=== PATIENT | male | born 1950 | race Asian ===

== ENCOUNTER 2018-06-20 13:49 | Inpatient (IN) | payer OTHER ==
[2018-06-20 14:07] LABS: ADD MAN DIFF? NO
[2018-06-20 14:11] LABS: WHITE BLOOD COUNT 9.9 10^3/ul (4.8-10.8)
[2018-06-20 14:11] LABS: BASOPHIL # 0.1 10^3/ul (0.0-0.1); BASOPHILS % 0.7 % (0.0-2.0); EOSINOPHILS # 1.1 10^3/ul (0.0-0.5); EOSINOPHILS % 11.3 % (0.0-7.0); HEMATOCRIT 54.2 % (42.0-52.0); HEMOGLOBIN 16.5 g/dl (14.0-18.0); LYMPHOCYTES # 2.1 10^3/ul (0.8-2.9); LYMPHOCYTES % 20.9 % (15.0-51.0); MEAN CORPUSCULAR HEMOGLOBIN 29.1 pg (29.0-33.0); MEAN CORPUSCULAR HGB CONC 30.4 g/dl (32.0-37.0); MEAN CORPUSCULAR VOLUME 95.6 fl (82.0-101.0); MEAN PLATELET VOLUME 10.7 fl (7.4-10.4); MONOCYTE # 0.8 10^3/ul (0.3-0.9); MONOCYTES % 8.5 % (0.0-11.0); NEUTROPHIL # 5.8 10^3/ul (1.6-7.5); NEUTROPHILS % 58.3 % (39.0-77.0); PLATELET COUNT 170 10^3/UL (140-415); RED BLOOD COUNT 5.67 10^6/ul (4.70-6.10); RED CELL DISTRIBUTION WIDTH 15.2 % (11.5-14.5)
[2018-06-20 14:32] LABS: ALANINE AMINOTRANSFERASE 39 IU/L (13-69); ALBUMIN/GLOBULIN RATIO 1.17; ALKALINE PHOSPHATASE 67 IU/L (42-121); ANION GAP 9 (8-16); ASPARTATE AMINO TRANSFERASE 37 IU/L (15-46); BILIRUBIN,INDIRECT 0.6 mg/dl (0-1.1); BILIRUBIN,TOTAL 0.6 mg/dl (0.2-1.3); BLOOD UREA NITROGEN 21 mg/dl (7-20); CALCIUM 8.9 mg/dl (8.4-10.2); CARBON DIOXIDE 32 mmol/L (21-31); CHLORIDE 106 mmol/L (97-110); CREATININE 0.94 mg/dl (0.61-1.24); GLUCOSE 111 mg/dl (70-220); POTASSIUM 4.4 mmol/L (3.5-5.1); SODIUM 143 mmol/L (135-144); TOTAL PROTEIN 7.4 g/dl (6.1-8.1)
[2018-06-20] MEDS: ASPIRIN 81 MG TAB PO (14:34)
[2018-06-20 14:41] LABS: B-TYPE NATRIURETIC PEPTIDE 1240 PG/ML (0-125); TROPONIN-I 0.026 ng/ml (0.000-0.120)
[2018-06-20 14:56] LABS: MODE NASAL CANNULA; MetHgb Venous 0.5 %; Sample Type Blood venous; Site VENOUS LINE; Venous COHb 0.7 %; Venous Fraction OxyHgb 28.6 %; Venous Oxygen Sat 28.9 mmHG (55.0-75.0); Venous Total Hemglobin 16.9 g/dl
[2018-06-20] MEDS: LEVOFLOXACIN 750MG/D5W (PMX) 150 ML IVPB (14:57)
[2018-06-20] MEDS: SODIUM CHLORIDE 0.9% 1L BAG IV* (14:57)
[2018-06-20 15:38] LABS: LACTIC ACID 1.2 mmol/L (0.5-2.0)
[2018-06-20] MEDS ORDERED: METOPROLOL 5 MG INJ IV (17:00)
[2018-06-20] MEDS: IOHEXOL 100 ML (17:07)
[2018-06-20] MEDS: SOD CHLORIDE 0.9% 100 ML (17:07)
[2018-06-20] MEDS: DILTIAZEM 25 MG INJ IV (17:11)
[2018-06-20] MEDS ORDERED: ONDANSETRON 4 MG INJ IV ×2 (18:30→19:00)
[2018-06-20] MEDS ORDERED: ACETAMINOPHEN 325 MG TAB PO ×2 (18:30→19:00)
[2018-06-20 18:42] LABS: LACTIC ACID 0.9 mmol/L (0.5-2.0)
[2018-06-20] MEDS ORDERED: morphine 2 MG INJ IV (19:00)
[2018-06-20] MEDS ORDERED: HYDROCODONE/APAP (5/325) TAB PO (19:00)
[2018-06-20] MEDS ORDERED: ALBUTEROL/IPRATROPIUM (NEB) 3 ML AMP HHN (19:00)
[2018-06-20] MEDS ORDERED: DOCUSATE SODIUM 100 MG CAP PO (19:00)
[2018-06-20] MEDS ORDERED: NACL 0.9% 3 ML SYG IV (19:00)
[2018-06-20] MEDS ORDERED: ZOLPIDEM 5 MG TAB PO (19:00)
[2018-06-20] MEDS: METHYLPREDNISOLONE 125 MG INJ IV (19:25)
[2018-06-20] MEDS: SOD CHLORIDE 0.9% 1,000 ML IV (19:25)
[2018-06-20] MEDS ORDERED: GLUCAGON 1 MG INJ IM (19:30)
[2018-06-20] MEDS ORDERED: GLUCOSE GEL 15 GRAM TUBE PO ×2 (19:30)
[2018-06-20] MEDS ORDERED: DEXTROSE 50% 50 ML SYRINGE IV ×2 (19:30)
[2018-06-20] MEDS ORDERED: GLUCOSE GEL 15 GRAM TUBE BUCCAL (19:30)
[2018-06-20] MEDS: AZITHROMYCIN 500MG/NS (PMX) 250 ML IVPB (19:30)
[2018-06-20] MEDS: INSULIN GLARGINE [LANTus] (100 UNITS/ML) SYG SC (20:47)
[2018-06-20] MEDS: INSULIN ASPART [NOVOLOG] 3 ML PEN SC (20:49)
[2018-06-20 21:29] LABS: CREATINE KINASE 227 IU/L (23-200)
[2018-06-20 21:40] LABS: CK INDEX 2.3; CK-MB 5.16 ng/ml (0.0-2.4); TROPONIN-I 0.024 ng/ml (0.000-0.120)
[2018-06-20 21:45] LABS: LACTIC ACID 2.4 mmol/L (0.5-2.0)
[2018-06-20] MEDS: ATORVASTATIN 40 MG TAB PO (22:40)
[2018-06-21] MEDS: METHYLPREDNISOLONE 125 MG INJ IV ×3 (01:00→13:14)
[2018-06-21] MEDS: METOPROLOL 25 MG TAB PO (01:34)
[2018-06-21] MEDS: ACCU-CHEK XX (01:39)
[2018-06-21 03:04] LABS: CREATINE KINASE 309 IU/L (23-200)
[2018-06-21 03:18] LABS: CK INDEX 2.6; CK-MB 8.16 ng/ml (0.0-2.4); TROPONIN-I 0.018 ng/ml (0.000-0.120)
[2018-06-21 06:29] LABS: ADD MAN DIFF? NO
[2018-06-21 06:31] LABS: BASOPHILS % 0.4 % (0.0-2.0); EOSINOPHILS % 0.1 % (0.0-7.0); HEMATOCRIT 54.9 % (42.0-52.0); HEMOGLOBIN 16.1 g/dl (14.0-18.0); LYMPHOCYTES # 0.7 10^3/ul (0.8-2.9); LYMPHOCYTES % 10.4 % (15.0-51.0); MEAN CORPUSCULAR HEMOGLOBIN 28.2 pg (29.0-33.0); MEAN CORPUSCULAR HGB CONC 29.3 g/dl (32.0-37.0); MEAN CORPUSCULAR VOLUME 96.1 fl (82.0-101.0); MEAN PLATELET VOLUME 10.7 fl (7.4-10.4); MONOCYTE # 0.1 10^3/ul (0.3-0.9); MONOCYTES % 0.9 % (0.0-11.0); NEUTROPHILS % 87.8 % (39.0-77.0); PLATELET COUNT 162 10^3/UL (140-415); RED BLOOD COUNT 5.71 10^6/ul (4.70-6.10); RED CELL DISTRIBUTION WIDTH 15.3 % (11.5-14.5)
[2018-06-21 06:31] LABS: WHITE BLOOD COUNT 6.9 10^3/ul (4.8-10.8)
[2018-06-21 06:53] LABS: ANION GAP 10 (8-16); BLOOD UREA NITROGEN 19 mg/dl (7-20); CALCIUM 8.5 mg/dl (8.4-10.2); CARBON DIOXIDE 29 mmol/L (21-31); CHLORIDE 108 mmol/L (97-110); CREATININE 0.75 mg/dl (0.61-1.24); GLUCOSE 185 mg/dl (70-220); MAGNESIUM 1.7 mg/dl (1.7-2.5); PHOSPHORUS 3.9 mg/dl (2.5-4.9); SODIUM 142 mmol/L (135-144)
[2018-06-21 07:11] LABS: FREE THYROXINE INDEX (Calc) 2.38 ug/ml (0.65-3.89); T3 UPTAKE 33.5 % (23.5-40.5); T4 (THYROXINE) 7.1 ug/dl (5.5-11.0)
[2018-06-21] MEDS: INSULIN ASPART [NOVOLOG] 3 ML PEN SC ×5 (07:55→21:00)
[2018-06-21 08:16] LABS: HEMOGLOBIN A1C 7.3 % (0-5.9)
[2018-06-21] MEDS: ASPIRIN (EC) 81 MG TAB PO (08:19)
[2018-06-21] MEDS: SOD CHLORIDE 0.9% 1,000 ML IV ×2 (08:20→21:31)
[2018-06-21] MEDS: CEFTRIAXONE 1 GM/50 ML (PMX) 50 ML IVPB (08:21)
[2018-06-21] MEDS: LOSARTAN 50 MG TAB PO (08:21)
[2018-06-21] MEDS: TIOTROPIUM 18 MCG CAPSULE INHA DEV INH (08:22)
[2018-06-21] MEDS: ENOXAPARIN 40 MG/0.4 ML SYG SC (08:31)
[2018-06-21] MEDS: METOPROLOL 50 MG TAB PO (10:39)
[2018-06-21] MEDS: MAGNESIUM SULFATE 3 GM in DEXTROSE 5% 100 ML IVPB ×2 (13:47→14:41)
[2018-06-21] MEDS: DIGOXIN 500 MCG INJ IV ×2 (17:00→21:00)
[2018-06-21] MEDS: DILTIAZEM 60 MG TAB PO (17:48)
[2018-06-21] MEDS: RIVAROXABAN 20 MG TABLET PO (17:48)
[2018-06-21] MEDS ORDERED: RIVAROXABAN 20 MG TABLET PO (17:55)
[2018-06-21] MEDS: AZITHROMYCIN 500MG/NS (PMX) 250 ML IVPB (21:30)
[2018-06-21] MEDS: ATORVASTATIN 40 MG TAB PO (21:30)
[2018-06-21] MEDS: INSULIN GLARGINE [LANTus] (100 UNITS/ML) SYG SC (21:52)
[2018-06-22] MEDS: DIGOXIN 500 MCG INJ IV ×4 (00:22→12:20)
[2018-06-22] MEDS: DILTIAZEM 60 MG TAB PO ×3 (01:00→12:19)
[2018-06-22] MEDS: ACCU-CHEK XX (02:00)
[2018-06-22 06:08] LABS: ADD MAN DIFF? NO
[2018-06-22 06:13] LABS: WHITE BLOOD COUNT 13.5 10^3/ul (4.8-10.8)
[2018-06-22 06:13] LABS: BASOPHILS % 0.1 % (0.0-2.0); EOSINOPHILS % 0.1 % (0.0-7.0); HEMATOCRIT 53.4 % (42.0-52.0); HEMOGLOBIN 15.6 g/dl (14.0-18.0); LYMPHOCYTES # 1.1 10^3/ul (0.8-2.9); LYMPHOCYTES % 8.4 % (15.0-51.0); MEAN CORPUSCULAR HEMOGLOBIN 28.5 pg (29.0-33.0); MEAN CORPUSCULAR HGB CONC 29.2 g/dl (32.0-37.0); MEAN CORPUSCULAR VOLUME 97.4 fl (82.0-101.0); MEAN PLATELET VOLUME 10.9 fl (7.4-10.4); MONOCYTES % 7.1 % (0.0-11.0); NEUTROPHIL # 11.3 10^3/ul (1.6-7.5); NEUTROPHILS % 83.8 % (39.0-77.0); PLATELET COUNT 163 10^3/UL (140-415); RED BLOOD COUNT 5.48 10^6/ul (4.70-6.10); RED CELL DISTRIBUTION WIDTH 15.3 % (11.5-14.5)
[2018-06-22 06:52] LABS: ALANINE AMINOTRANSFERASE 51 IU/L (13-69); ALBUMIN 3.4 g/dl (3.3-4.9); ALBUMIN/GLOBULIN RATIO 1.17; ALKALINE PHOSPHATASE 48 IU/L (42-121); ANION GAP 11 (8-16); ASPARTATE AMINO TRANSFERASE 35 IU/L (15-46); BILIRUBIN,INDIRECT 0.2 mg/dl (0-1.1); BILIRUBIN,TOTAL 0.2 mg/dl (0.2-1.3); BLOOD UREA NITROGEN 23 mg/dl (7-20); CALCIUM 8.3 mg/dl (8.4-10.2); CARBON DIOXIDE 27 mmol/L (21-31); CHLORIDE 109 mmol/L (97-110); CHOL/HDL RATIO 2.5 RATIO; CHOLESTEROL 123 mg/dl (100-200); CREATININE 0.84 mg/dl (0.61-1.24); GLUCOSE 125 mg/dl (70-220); HDL CHOLESTEROL 48 mg/dl (30-78); LDL CHOLESTEROL,CALCULATED 61 mg/dl; POTASSIUM 4.7 mmol/L (3.5-5.1); SODIUM 142 mmol/L (135-144); TOTAL PROTEIN 6.3 g/dl (6.1-8.1); TRIGLYCERIDES 72 mg/dl (0-149)
[2018-06-22 06:55] LABS: CREATINE KINASE 177 IU/L (23-200)
[2018-06-22 07:00] LABS: B-TYPE NATRIURETIC PEPTIDE 2470 PG/ML (0-125)
[2018-06-22 07:06] LABS: FREE T4 (FREE THYROXINE) 0.82 ng/dl (0.78-2.44)
[2018-06-22 07:08] LABS: CK INDEX 4.3; CK-MB 7.67 ng/ml (0.0-2.4)
[2018-06-22 07:21] LABS: THYROID STIMULATING HORMONE 0.436 MIU/L (0.465-4.680)
[2018-06-22] MEDS: INSULIN ASPART [NOVOLOG] 3 ML PEN SC ×4 (07:29→11:55)
[2018-06-22] MEDS: TIOTROPIUM 18 MCG CAPSULE INHA DEV INH (08:35)
[2018-06-22] MEDS: ASPIRIN (EC) 81 MG TAB PO (08:36)
[2018-06-22] MEDS: CEFTRIAXONE 1 GM/50 ML (PMX) 50 ML IVPB (08:36)
[2018-06-22] MEDS: LOSARTAN 50 MG TAB PO (08:37)
[2018-06-22] MEDS: SOD CHLORIDE 0.9% 1,000 ML IV (10:45)
[2018-06-22 10:53] LABS: MAGNESIUM 2.5 mg/dl (1.7-2.5)
== END 2018-06-22 13:21 | disposition home or self-care (01) | DRG 191 ==
LOC: TEL 21:36 → E/R 13:49 → TEL 18:02
PROC: 4A033R1 Measurement of Arterial Saturation, Peripheral, Percutaneous Approach (ICD-10-PCS; principal; 2018-06-20)
DX: J44.1 Chronic obstructive pulmonary disease with (acute) exacerbation (principal); I48.92 Unspecified atrial flutter; E86.0 Dehydration; E11.22 Type 2 diabetes mellitus with diabetic chronic kidney disease; I12.9 Hypertensive chronic kidney disease with stage 1 through stage 4 chronic kidney disease, or unspecified chronic kidney disease; N18.9 Chronic kidney disease, unspecified; Z79.82 Long term (current) use of aspirin
CPT/HCPCS: 36415; 71045; 71275; 80048; 80053; 80061; 82550; 82553; 82803; 82962; 83036; 83605; 83735; 83880; 84100; 84436; 84439; 84443; 84479; 84484; 85025; 87040; 93005; 93306; 96374; 96375; 99291-25